=== PATIENT | female | born 1940 | race Caucasian/White ===

== ENCOUNTER 2021-07-01 06:06 | Day surgery (SDC) | payer MEDICARE, BC ==
[~2021-07-01] VITALS: Ht 167.7 cm; Wt 95.3 kg
[2021-07-01] VITALS (8 sets, daily range): BP systolic 106–148; BP diastolic 46–76; PULSE 60–63; TEMP 97
[~2021-07-01 06:06] MED LIST: ALDACTONE 25MG25 M1 PO; ASPIRIN 32325 MG/TAB PO; AVAPRO300 M1 PO; BROVANA15 MCG/2 M IH; CALCIUM ANTACI500 MG PO; CHOLEST OFF PO; COREG 25MG25 MG/TAB PO; COZAAR100 MG PO; DITROPAN XL10 MG PO; EVISTA 60MG60 MG/TAB PO; FISH OIL1000 MG PO; GLUCOPHAGE XR500 M1 PO; LIPITOR 10MG10 MG PO; LORTAB 5/500 501 TAB PO; NORCO 325 MG-51 TAB PO; PULMICORT0.5 MG/2 M IH; QUESTRAN4 GM/9 GM PO; SLO NIACIN500 MG PO; TOPROL XL 25MG25 MG PO; VITAMIN D31000 IU PO; XANAX .25M0.25 MG/TA PO; ZOCOR 40MG40 MG PO
[2021-07-01 08:09] LABS: INR 1.1 (0.8-3.0); PROTHROMBIN TIME 12.1 SECONDS (9.7-12.8)
[2021-07-01 08:17] LABS: CALCIUM 9.2 mg/dL (8.4-10.2); CREATININE, serum 0.67 (0.52-1.25); POTASSIUM 4.4 mmol/L (3.4-5.0)
[2021-07-01] MEDS ORDERED: BROVANA15 MCG/2 M IH (08:27)
[2021-07-01] MEDS ORDERED: PULMICORT0.5 MG/2 M IH (08:28)
[2021-07-01 08:30] LABS: HEMOGLOBIN 10.1 g/dl (12.5-16.0); MEAN CELL VOLUME 97 fl (80.0-100.0); MEAN CORPUSCULAR HEMOGLOBIN 29 pg (27.0-31.0); MEAN CORPUSCULAR HGB CONC 30 g/dl (33.0-37.0); MEAN PLATELET VOLUME 11.2 fl (7.4-10.4); PLATELET COUNT 173 K/mm3 (130-400); RED BLOOD COUNT 3.47 M/mm3 (4.10-5.30); REDCELL DISTRIBUTION WIDTH-CV 14.5 % (11.5-14.5)
[2021-07-01] MEDS ORDERED: CELEBREX 200MG200 MG PO (08:31)
[2021-07-01] MEDS ORDERED: CHOLESTOFF PO (08:33)
[2021-07-01 08:34] LABS: HEMATOCRIT 33.6 % (37.0-47.0)
[2021-07-01] MEDS ORDERED: LASIX 40MG TABL40 MG PO (08:40)
[2021-07-01] MEDS ORDERED: B-12 500 MCG PO (08:44)
[2021-07-01] MEDS ORDERED: TRIAMCINOLONE A15 G3 TP (08:44)
[2021-07-01] MEDS ORDERED: [UNRECOGNIZED DRUG - SUPPLY] OP (08:45)
[2021-07-01] MEDS ORDERED: ELIQUIS 5MG PO (08:46)
[2021-07-01] MEDS ORDERED: PHARMASSURE ZIN50 MG PO (08:46)
[2021-07-01] MEDS ORDERED: PROTONIX20 MG PO (08:47)
--- NOTE | 2021-07-01 10:24 | NUR ---
Pt to procedure at this time.
--- NOTE | 2021-07-01 11:12 | NUR ---
SEE MERGE FOR ALL MEDICATION ADMINISTRATION TIMES, INTRA AND POST SEDATION ASSESSMENTS
--- NOTE | 2021-07-01 13:52 | NUR ---
Discharge instructions given to pt.Pt verbalizes understanding.INT removed,catheter tip intact.Pt escorted out via wheelchair by this nurse.
== END 2021-07-01 13:55 ==
LOC: COL.CAR 06:06
PROVIDERS: Internal Medicine Cardiovascular Disease
DX: Z45.02 Encounter for adjustment and management of automatic implantable cardiac defibrillator (principal); I48.0 Paroxysmal atrial fibrillation; I42.0 Dilated cardiomyopathy; Z85.3 Personal history of malignant neoplasm of breast
CPT/HCPCS: C1882; J2250; J3010; J3370; J7030; J7050